=== PATIENT | male | born 1985 | race Caucasian/White ===

== ENCOUNTER → 2016-12-26 | Day surgery (SDC) | payer OTHER ==
[~2016-12-26] MED LIST: ALENDRONATE SOD70 MG PO; B12 HEALTH1000 MCG/1 PO; BUSPIRONE HCL10 MG PO; DEPAKOTE125 MG PO; LIORESAL10 MG PO; LISINOPRIL5 MG PO; REMERON15 MG PO; SEROQUEL400 MG PO; VICODIN PO; VIT D PO
--- NOTE | ~2016-12-26 | OR ---
Unit #: [id number] #: [id number] Patient: RACHEL ASHLEY [id number] [address] [place], [place] [address] [id number] O MR#: [id number] NAME: RACHEL ASHLEY ROOM: Date of Procedure: 12/26/2016 Admission Date: 12/26/2016 Surgeon: Wing Daniel M.D. : 1985 Attending Physician: Wing Daniel M.D. Primary Care Physician: Alyssa Buchanan OPERATIVE REPORT ADDENDUM The patient had an in-detailed discussion with Corina Berman, a [employer] underwriting service representative, regarding the risks benefits and alternatives available including the consent decree. All his questions were answered to his satisfaction. The patient also has had a psychological evaluation and a cardiac clearance, both of which did not show any abnormalities. The patient as mentioned earlier has had a successful epidural pain pump trial with hydromorphone in which his pain was very well controlled by about 85% to 90%. DESCRIPTION OF PROCEDURE After obtaining full informed consent and after discussion with the patient possible complications including infection, bleeding, paralysis, spinal headaches, , and other perioperative complications were discussed with the patient and consent was obtained in front of the preoperative nurse Kimberly. The patient was then taken back to the operating room, where a time-out was done in accordance to the joint commission guidelines where the patient's identity, procedure, and site of procedure were verified. The anesthesiologist induced general anesthesia and positioned the patient in left lateral decubitus position. The patient was then prepped and draped in the usual fashion. The patient received antibiotic coverage 30 minutes before entering the operating room. Then under fluoroscopic view, I was able to identify the L2-3 interspace and after the skin target sites were anesthetized, I made an incision measuring 3.5 cm in length and with the help of the Bovie, I was able undermine the subcutaneous tissue to fashion some space where I can place Touhy needle and the catheter. Once this was done, I passed a 17-gauge Tuohy needle to access the intrathecal space, which I was able to achieve at first pass with clear flow of CSF. I then navigated an Ascenda catheter through the Tuohy needle to reach the upper border of T8 under live fluoroscopic view. Once this was done, the Tuohy needle along with the stylet of the catheter were removed and I used a special anchoring device to anchor this catheter to the interspinous ligament. This anchor was further fortified using 3-0 Prolene sutures. This incision was then copiously irrigated with irrigant. I then anesthetized the skin of the right side of his belly and made an incision measuring 5.5 cm in length. With the help of the Bovie, I was able to create a pocket, so that I could place the pump into the pocket, which then fit snugly. I used a tunneling device to tunnel this catheter from the lumbar incision into the pocket. The catheter was cut to size and I used a special connector to connect this catheter to another segment of catheter that I used to connect to the SynchroMed II pump. This pump was filled by me with hydromorphone at a Unit #: [id number] #: [id number] Patient: GABIRACHEL concentration of 5 mg/mL totalling 20 mL. I then aspirated the side port of the pump using a 24-gauge Zabala needle where I was able to get clear flow of CSF. This signified that the catheter and the pump system are intact. I then placed the pump into the pocket and secured it using the 4 anchors and 3-0 Prolene sutures. Prior to doing that, this pocket was copiously irrigated with irrigant. I then inspected the 2 incisions carefully and they were closed using interrupted Vicryl sutures, 3-0 in 2 layers. The skin was approximated with raudel and a Telfa Tegaderm dressing was placed. The patient was then brought back to the recovery room for neurological monitoring. PLAN OF CARE The patient had an uneventful recovery and was discharged home neurologically intact with plans to return to my office in 7 days to have the raudel removed. The patient's pump was started at 0.35 mg per day and the patient has the ability to receive his patient staff home therapy rn at 0.02 mg with 3 activations per day. In other words, if he uses all of his activations, he will receive 0.408 mg of hydromorphone per day. His Medtronic catheter serial number is [id number] and the SynchroMed pump serial number is [id number]. The patient understands that he has to return to my office in 7 days for staple removal. I also discussed the patient's course of the surgical procedure with his mother. Dictated by... Ninoska Soriano TD: 12/28/2016 01:31 JOB #: [id number] OPERATIVE REPORT Page 1 of 1 X Wing Daniel MD X PROCEDURE OPERATIVE NOTE
--- NOTE | ~2016-12-26 | OR ---
Unit #: [id number] #: [id number] Patient: RACHEL CHAPARRO [id number] [address] [place], [place] [address] [id number] O MR#: [id number] NAME: RACHEL CHAPARRO ROOM: Date of Procedure: 12/26/2016 Admission Date: 12/26/2016 Surgeon: Wing Daniel M.D. : 1985 Attending Physician: Wing Daniel M.D. Primary Care Physician: Alyssa Buchanan OPERATIVE REPORT PREOPERATIVE DIAGNOSES 1. Peripheral neuropathy. 2. Chronic pain syndrome. POSTOPERATIVE DIAGNOSES 1. Peripheral neuropathy. 2. Chronic pain syndrome. PROCEDURES PERFORMED 1. Implantation of Medtronic SynchroMed pump. 2. Implantation of Ascenda catheter. 3. Fluoroscopy. 4. Physician filling of pump. SURGICAL INDICATION AND RATIONALE Mr. Rachel Chaparro is a pleasant 31-year-old gentleman, who has been having intractable pain in his lower extremity. The patient has this burning and numb sensation secondary to peripheral neuropathy. The patient does have some form of vitamin B12 deficiency, which has led to this condition. The patient has undergone a successful epidural pain pump trial with hydromorphone in which his pain was about 60% to 70% relieved. The patient has taken oral opioids and escalating doses with very limited relief of pain. The patient consistently has tingling and numbness in the lower extremities. The patient also has had physical therapy, home exercises, home health care respiratory therapist, and other conservative treatment options, which have failed. The patient has undergone a cardiac evaluation in which no abnormalities were noted. The patient also has had a psychological evaluation again with no abnormalities. The patient has undergone an extensive education process with me regarding the risks, benefits, and alternatives available including the consent decree and all his questions were answered to his satisfaction regarding the above. I used a teach back method to make sure that the patient *Faxed to Dr. Daniel's office on 12/27/2016 for completion. cd Dictated by.Ninoska Eric/eribertol Unit #: [id number] #: [id number] Patient: RACHEL CHAPARRO TD: 12/27/2016 03:15 JOB #: [id number] OPERATIVE REPORT Page 1 of 1 X Wing Daniel MD PROCEDURE OPERATIVE NOTE
--- NOTE | ~2016-12-26 | EKG ---
PATIENT: RACHEL ASHLEY UNIT #: [id number] Ventricular Rate: 83 BPM Atrial Rate: 83 BPM P-R Interval: 148 ms QRS Duration: 88 ms Q-T Interval: 362 ms QTC Calculation(Bezet): 425 ms P [place]: 33 degrees Calculated R [place]: 7 degrees Calculated T [place]: 17 degrees Diagnosis Line: Normal sinus rhythm Diagnosis Line: Minimal voltage criteria for LVH, may be normal Diagnosis Line: variant Diagnosis Line: Borderline ECG Diagnosis Line: No previous ECGs available Diagnosis Line: Confirmed by FRANK TABOR MD ([id number]) on Diagnosis Line: 12/27/2016 6:42:09 AM INTERPRETING MD: SCOOBY
== END | disposition home or self-care (01) ==
LOC: CSUR 08:40
DX: G62.9 Polyneuropathy, unspecified (principal); G89.4 Chronic pain syndrome; I10 Essential (primary) hypertension; F17.200 Nicotine dependence, unspecified, uncomplicated
CPT/HCPCS: 77003; 93005; C1772; J0330; J0690; J1170; J2250; J2405; J3010